=== PATIENT | male | born 1965 | race Two or more races ===

== ENCOUNTER 2017-04-20 08:22 | Day surgery (SDC) | payer OTHER ==
[2017-04-17 13:05] LABS: Hematocrit 44.8 % (41.0-53.0); Hemoglobin 14.9 g/dL (13.5-17.5); Mean Corpuscular Hemoglobin 31.2 pg (28.0-32.0); Mean Corpuscular Hgb Conc. 33.3 g/dL (32.0-36.0); Mean Corpuscular Volume 93.8 fL (80.0-100.0); Platelet Count (auto) 263 10^3/uL (140-450); Red Blood Cells 4.78 10^6/uL (4.5-5.90); Red Cell Distribution Width 13.5 % (11.8-14.3); White Blood Cell 5.3 10^3/uL (4.4-10.8)
[2017-04-17 13:11] LABS: INR 0.95 (0.9-1.15); Prothrombin Time 10.4 sec (9.37-12.3)
[2017-04-17 13:20] LABS: Band Neutrophils % (manual) 0; Basophils % (manual) 0 (0.0-2.0); Blast Cells 0; Eosinophils % (manual) 0 (0-7); Metamyelocytes % 0; Myelocytes % 0; Promyelocytes % 0
[2017-04-17 13:52] LABS: Lymphocytes % (manual) 60 (10.0-50.0); Monocytes % (manual) 8 (0-12); Reactive Lymphocytes 2
[~2017-04-20] VITALS: Ht 170.2 cm; Wt 90.7 kg
[~2017-04-20 08:22] MED LIST: FLUMAZENIL 0.1 MG/ML INJ 10ML MDV IV ONE; LIDOCAINE VISCOUS 2% 15ML UD ONE; NALOXONE HCL 0.4 MG/ML VIAL ONE; PANT40TA2 PO; SODIUM CHLORIDE LOCK 10 ML ONE; diphenhdrAMINE HCL 50 MG/1 ML VL ONE
[2017-04-20] MEDS: fentaNYL CITRATE 100 MCG/2 ML VL ONE ×2 (09:04→09:14)
[2017-04-20] MEDS: MIDAZOLAM HCL 5 MG/ML-1ML VIAL ONE ×2 (09:04→09:14)
[2017-04-20 09:55] VITALS: BP 114/76
== END 2017-04-20 10:10 | disposition home or self-care (01) ==
LOC: SUR 08:22
PROVIDERS: ATTEND Internal Medicine Gastroenterology
DX: Z12.11 Encounter for screening for malignant neoplasm of colon (principal); K64.8 Other hemorrhoids; K57.30 Diverticulosis of large intestine without perforation or abscess without bleeding; E66.9 Obesity, unspecified; Z68.31 Body mass index [BMI] 31.0-31.9, adult
CPT/HCPCS: 36415; 43239; 45378; 85007; 85027; 85610; J1200; J2250; J3010; 99152